=== PATIENT | male | born 1965 | race Asian ===

== ENCOUNTER 2019-02-19 09:36 | Emergency (ER) | payer OTHER ==
[~2019-02-19] VITALS: Ht 170.2 cm; Wt 71.7 kg
[2019-02-19 09:39] VITALS: Ht 170.2 cm; Wt 71.7 kg
[2019-02-19 11:31] VITALS: BP 109/67
== END 2019-02-19 13:19 | disposition home or self-care (01) ==
LOC: ED 09:36
DX: M50.922 Unspecified cervical disc disorder at C5-C6 level (principal); S60.414A Abrasion of right ring finger, initial encounter; S60.416A Abrasion of right little finger, initial encounter; S80.212A Abrasion, left knee, initial encounter; F17.210 Nicotine dependence, cigarettes, uncomplicated; K21.9 Gastro-esophageal reflux disease without esophagitis; V43.52XA Car driver injured in collision with other type car in traffic accident, initial encounter; Y93.I9 Activity, other involving external motion; Y92.488 Other paved roadways as the place of occurrence of the external cause; Y99.8 Other external cause status
CPT/HCPCS: 90715; 99406